=== PATIENT | female | born 1955 | race Caucasian/White ===

== ENCOUNTER 2018-09-12 15:10 | Inpatient (IN) | payer MEDICARE, OTHER ==
[2014-06-22 11:46] VITALS: Ht 157.5 cm; Wt 89.4 kg
[~2018-09-12] VITALS: Ht 157.5 cm; Wt 89.4 kg
[~2018-09-12 15:10] MED LIST: ALP5 PO; AMOX-362 PO; ATEN-1 PO; Aspirin PO; CALC-965 PO; FURO20TA2 PO; GLIP-175 PO; GUAI-334 PO; HYDR2TAB74 PO; INSU100V26 IJ; LANI SUBQ; LANS15CA28 PO; LEVO50 PO; MET500 PO; MOME17SP9 NS; NOR10/325 PO; OMEP-114 PO; OXYC-865 PO; PRED1TAB17 PO; SER50 PO; SITA50TA6 PO; TIZ4 PO; TOFA5TAB PO; [UNRECOGNIZED DRUG - CODE] PO
--- NOTE | 2018-09-12 15:18 | ER Report ---
History and Physical Time Seen By MD: 15:18 HPI/ROS CHIEF COMPLAINT: Left-sided weakness, facial droop HISTORY OF PRESENT ILLNESS: 63-year-old female patient presents to emergency room with complaint of left-sided weakness, facial droop. Patient states that she was in [place] visiting her family. She states that her sister came to pick her up and bring her back to [place]. She states when they did that they noted that she had a left-sided facial droop. They said go to the emergency room and evaluated there. They state that while there they did a CT scan of the head and told them that everything was okay discharge her home. She states since then she's been having worsening symptoms. She states she has had some chest pain. She states she also has had increasing weakness in the left part of her body. Patient states she did have a seizure earlier today. As for that reason they felt that patient bring her in and get her evaluated. Patient denies any fevers, chills, nausea, vomiting or diarrhea. REVIEW OF SYSTEMS: Respiratory: No cough, no dyspnea. Cardiovascular: No chest pain, no palpitations. Gastrointestinal: No vomiting, no abdominal pain. Musculoskeletal: As noted above. Allergies: Coded Allergies: morphine (Verified Adverse Reaction, Severe, RESPIRATORY ARREST, CHEST PAIN, 09/12/18) Home Meds Reported Medications Hydrocodone Bit/Acetaminophen (HYDROCODON-ACETAMINOPHEN 5-325) 1 Each Tablet, 1 EACH PO Q6H, TAB 09/12/18 Losartan Potassium (LOSARTAN POTASSIUM) 50 Mg Tablet, 50 MG PO QDAY 09/12/18 Insulin Regular, Human (HUMULIN R) 100 Unit/1 Ml Vial, 5 UNIT IJ, VIAL 12/08/14 Tofacitinib Citrate (XELJANZ) 5 Mg Tablet, 5 MG PO BID 12/08/14 Discontinued Reported Medications Glipizide (GLIPIZIDE ER) 5 Mg Tab.er.24, PO BID 12/08/14 Tizanidine Hcl (Zanaflex) 4 Mg Tab, 8 MG PO PRN 01/04/12 Furosemide (LASIX (OR EQUIV)) 20 Mg Tab, 20 MG PO DAILY 01/04/12 Alprazolam (Xanax) 0.5 Mg Tab, 0.5 MG PO TID 01/04/12 Prednisone (PREDNISONE) 1 Mg Tablet, 5 MG PO DAILY 01/04/12 Acetaminophen/Hydrocodone ([place] 10/325) 1 Ea Tab, 1 EA PO PRN 01/04/12 Levothyroxine Sodium (SYNTHROID/LEVOTHROID (OR EQUIV)) 0.05 Mg Tab, 150 MCG PO DAILY 01/04/12 Discontinued Scripts Hydromorphone Hcl (DILAUDID) 2 Mg Tablet, 2 MG PO Q4H PRN for PAIN, #10 Prov:SENACAMILO Kurt DO 03/07/15 Omeprazole (PRILOSEC) 20 Mg Capsule.dr, 1 TAB PO BID, #60 TAB Prov:CRISTINA JONES DO 02/21/15 Amoxicillin (AMOXICILLIN) 500 Mg Capsule, 2 CAP PO Q12H, #56 CAPSULE Prov:CRISTINA JONES DO 02/21/15 Clarithromycin (CLARITHROMYCIN) 250 Mg/5 Ml Susp.recon, 500 MG PO BID, #28 BOT Prov:CRISTINA JONES DO 02/21/15 Lansoprazole (PREVACID 24HR) 15 Mg Capsule.dr, 15 MG PO QDAY, #0 Prov:MARIA G HERNANDEZ MD 06/22/14 [Aspirin] 81 MG CHEW No Conflict Check, 81 MG PO QDAY, #0 Prov:MARIA G HERNANDEZ MD 06/22/14 Past Medical/Surgical History Patient has a past medical history of a right bundle branch block, angina, hypertension, hyperlipidemia, asthma, pneumonia, fatty liver disease, arthritis, fractures, type 2 diabetes, hypothyroidism, depression. Patient has surgical history of hysterectomy, appendectomy, right knee surgery, low back surgery, right shoulder surgery, tonsillectomy. Patient has a family medical history of cancer. Reviewed Nurses Notes: Yes Hx Smoking: No Smoking Status: Never Smoker Exposure to Second Hand Smoke?: No Hx Substance Use Disorder: No Hx Alcohol Use: No Constitutional Vital Sign - Last 24 Hours 09/12/18 09/12/18 09/12/18 09/12/18 15:30 15:36 15:40 16:00 Temp 98.7 Pulse ??? 101 ??? Resp 18 17 B/P (MAP) 129/81 (97) 129/81 141/77 (98) Pulse Ox 89 88 O2 Delivery Room Air 09/12/18 09/12/18 09/12/18 09/12/18 16:30 17:46 18:00 18:30 Pulse 95 96 102 Resp 24 24 29 B/P (MAP) 136/94 (108) 105/83 (90) 142/124 (130) 09/12/18 09/12/18 09/12/18 19:00 19:15 19:30 Pulse 96 94 96 Resp 26 25 42 B/P (MAP) 117/79 (92) 124/90 (101) Pulse Ox 91 92 Physical Exam General Appearance: The patient is alert, has no immediate need for airway protection and no current signs of toxicity. He has a left-sided facial droop. Eyes: Pupils equal and round no injection. Extraocular movements intact. Patient was complaining of decreased vision in the left side. Respiratory: Chest is non tender, lungs are clear to auscultation. Cardiac: regular rate and rhythm Gastrointestinal: Abdomen is soft and non tender, no masses, bowel sounds normal. Musculoskeletal: Neck: Neck is supple and non tender. Extremities have full range of motion and are non tender. Patient has obvious weakness to the left side of the body. She was unable to complete pronator drift. Skin: No rashes or lesions. Neuro: Patient is alert and oriented 4, patient does have a left-sided facial droop. Patient has weakness to the left arm. Pronator drift patient was not able to keep her left arm elevated. DIFFERENTIAL DIAGNOSIS: After history and physical exam differential diagnosis was considered for weakness including but not limited to electrolyte abnormality, depression, anxiety, CVA, spinal cord abnormality, and infectious causes. Medical Decision Making Data Points Result Diagram: 09/12/18 1556 09/12/18 1556 Laboratory Hematology Test 09/12/18 15:56 Red Blood Count 4.87 M/uL (4.17-5.56) Mean Corpuscular Volume 83.5 fL (80.0-96.0) Mean Corpuscular Hemoglobin 28.1 pg (26.0-33.0) Mean Corpuscular Hemoglobin Concent 33.6 g/dL (32.0-36.0) Red Cell Distribution Width 14.4 % (11.5-14.5) Mean Platelet Volume 9.2 fL (7.2-11.1) Neutrophils (%) (Auto) 66.8 % (39.4-72.5) Lymphocytes (%) (Auto) 24.6 % (17.6-49.6) Monocytes (%) (Auto) 7.2 % (4.1-12.4) Eosinophils (%) (Auto) 0.6 % (0.4-6.7) Basophils (%) (Auto) 0.8 % (0.3-1.4) Nucleated RBC Relative Count (auto) 0.1 /100WBC Neutrophils # (Auto) 7.3 K/uL (2.0-7.4) Lymphocytes # (Auto) 2.7 K/uL (1.3-3.6) Monocytes # (Auto) 0.8 K/uL (0.3-1.0) Eosinophils # (Auto) 0.1 K/uL (0.0-0.5) Basophils # (Auto) 0.1 K/uL (0.0-0.1) Nucleated RBC Absolute Count (auto) 0.01 K/uL Prothrombin Time 13.4 seconds (12.0-14.4) Prothromb Time International Ratio 1.02 Activated Partial Thromboplast Time 28 seconds (23-35) Sodium Level 129 mmol/L (137-145) Potassium Level 3.1 mmol/L (3.5-5.0) Chloride Level 93 mmol/L (98-107) Carbon Dioxide Level 23 mmol/L (22-31) Blood Urea Nitrogen 19 mg/dl (7-18) Creatinine 0.70 mg/dl (0.52-1.04) Glomerular Filtration Rate Calc > 60.0 Random Glucose 350 mg/dl (75-110) Calcium Level 9.4 mg/dl (8.4-10.2) Total Bilirubin 0.4 mg/dl (0.2-1.3) Aspartate Amino Transf (AST/SGOT) 18 U/L (0-35) Alanine Aminotransferase (ALT/SGPT) 18 U/L (0-56) Alkaline Phosphatase 80 U/L (0-126) Troponin I < 0.012 ng/ml Total Protein 7.6 g/dl (6.3-8.2) Albumin 4.1 g/dl (3.5-5.0) Chemistry Test 09/12/18 15:56 White Blood Count 10.9 k/uL (4.5-11.0) Red Blood Count 4.87 M/uL (4.17-5.56) Hemoglobin 13.7 g/dL (12.0-16.0) Hematocrit 40.6 % (34.0-47.0) Mean Corpuscular Volume 83.5 fL (80.0-96.0) Mean Corpuscular Hemoglobin 28.1 pg (26.0-33.0) Mean Corpuscular Hemoglobin Concent 33.6 g/dL (32.0-36.0) Red Cell Distribution Width 14.4 % (11.5-14.5) Platelet Count 339 K/uL (150-450) Mean Platelet Volume 9.2 fL (7.2-11.1) Neutrophils (%) (Auto) 66.8 % (39.4-72.5) Lymphocytes (%) (Auto) 24.6 % (17.6-49.6) Monocytes (%) (Auto) 7.2 % (4.1-12.4) Eosinophils (%) (Auto) 0.6 % (0.4-6.7) Basophils (%) (Auto) 0.8 % (0.3-1.4) Nucleated RBC Relative Count (auto) 0.1 /100WBC Neutrophils # (Auto) 7.3 K/uL (2.0-7.4) Lymphocytes # (Auto) 2.7 K/uL (1.3-3.6) Monocytes # (Auto) 0.8 K/uL (0.3-1.0) Eosinophils # (Auto) 0.1 K/uL (0.0-0.5) Basophils # (Auto) 0.1 K/uL (0.0-0.1) Nucleated RBC Absolute Count (auto) 0.01 K/uL Prothrombin Time 13.4 seconds (12.0-14.4) Prothromb Time International Ratio 1.02 Activated Partial Thromboplast Time 28 seconds (23-35) Glomerular Filtration Rate Calc > 60.0 Calcium Level 9.4 mg/dl (8.4-10.2) Total Bilirubin 0.4 mg/dl (0.2-1.3) Aspartate Amino Transf (AST/SGOT) 18 U/L (0-35) Alanine Aminotransferase (ALT/SGPT) 18 U/L (0-56) Alkaline Phosphatase 80 U/L (0-126) Troponin I < 0.012 ng/ml Total Protein 7.6 g/dl (6.3-8.2) Albumin 4.1 g/dl (3.5-5.0) Coagulation Test 09/12/18 15:56 Prothrombin Time 13.4 seconds Prothromb Time International Ratio 1.02 Activated Partial Thromboplast Time 28 seconds EKG/Imaging EKG Interpretation 12 lead EKG: Rhythm: normal sinus rhythm Dalton: normal QRS: normal ST segments: Nonspecific ST abnormality Imaging MR BRAIN/BRAIN STEM W/O CON Comparisons: Head CT scan dated same day. Additional pertinent history: Left-sided weakness TECHNIQUE: Multiplanar, multisequence brain MRI was performed without gadolinium contrast. FINDINGS: Sagittal midline structures and craniocervical junction: Negative. Midline shift: None. Ventricles: Negative. Brain parenchyma: Diffusion weighted imaging: Negative. Gradient sequence: Negative. T2 weighted FLAIR images: Scattered foci of abnormal increased T2 signal within the periventricular and subcortical white matter, nonspecific but likely representing small vessel ischemic change on a chronic basis. Extra-axial spaces: Negative. Dural venous sinuses and major arterial flow voids: Negative. Mastoid air cells and paranasal sinuses: Large mucous retention cyst involving the left maxillary sinus. Otherwise negative Surrounding soft tissues and orbits: Negative. Impression: E 1. Mild age related changes as described above. 2. No evidence of acute intracranial pathology. 3. Underlying paranasal sinus disease. Report Dictated By: Alonso Borjas MD at 09/12/2018 5:54 PM Report E-Signed By: Alonso Borjas MD at 09/12/2018 5:58 PM CHEST SINGLE AP INDICATION: chest pain, facial droop COMPARISON: 12/09/2014 FINDINGS: Cardiac silhouette is mildly enlarged. There is no focal infiltrate or lobar consolidation. There is no pneumothorax or pleural effusion. IMPRESSION: 1. No acute cardiopulmonary process. Report Dictated By: Srinivas Johnson at 09/12/2018 5:21 PM Report E-Signed By: Srinivas Johnson at 09/12/2018 5:[address] head without IV contrast HISTORY: Stroke alert. Left-sided weakness. COMPARISON: None. TECHNIQUE: Contiguous axial images were obtained from the skull base to the vertex without intravenous contrast. Sagittal and coronal reformatted images are also submitted. One of the following dose optimization techniques was utilized in the performance of this exam: Automated exposure control; adjustment of the mA and/or kV according to the patient's size; or use of an iterative bridgette nstruction technique. Specific details can be referenced in the facility's radiology CT exam operational policy. FINDINGS: Brain volume: Mild generalized atrophy with associated concordant prominence of the ventricular system. Ventricles: Normal. Acute ischemic changes: There is no loss of lui-white differentiation to suggest acute ischemia. Hemorrhage: No acute intracranial hemorrhage. Masses/edema: None. Lui-white: There are a few small areas of hypodensity in the left frontal perisylvian region. White matter: Normal. Vessels: Calcified plaque of the vertebral arteries and carotid siphons at the skull base. Extra-axial: Negative. Calvarium/scalp: Negative. Skull base/visualized face: Negative. Visualized sinuses/orbits: 2 cm mucous retention cyst in the left maxillary sinus. IMPRESSION: 1. No acute hemorrhage or intracranial mass lesion. No CT evidence of acute infarct. 2. A few small areas of hypodensity in the left frontal lobe could be related to old infarcts or trauma. These findings were discussed with HERSON CAIN at 09/12/2018 3:45 PM. Report Dictated By: Jerilyn Smith MD at 09/12/2018 3:42 PM Report E-Signed By: Jerilyn Smith MD at 09/12/2018 3:47 PM ED Course/Re-evaluation ED Course Patient was admitted to an exam room, history and physical were obtained. Differential diagnoses were considered. On examination patient did have left- sided weakness with a left-sided facial droop. During the pronator drift patient was not able to keep her left arm elevated. As result a CT scan of the head was done, a CBC, CMP, PT, PTT, EKG, troponin, chest x-ray were done. Lab results were unremarkable, EKG showed a normal sinus rhythm, chest x-ray showed no acute cardiopulmonary processes. With the facial weakness and the inability Left arm elevated I did discuss doing an MRI with patient. She verbalized understanding and agreement. Results of the MRI were negative for any acute stroke. At that time I discussed the case with Dr. Mishra, neurologist at [facility], he felt that the differentials included psychogenic weakness, MRA negative stroke. His recommendation was to go ahead and admit the patient to the hospital, monitor for 24 hours and continue the workup for stroke. If that was negative then patient should follow-up with neurology in the future. I discussed with patient who verbalized agreement. I then spoke with Dr. Price, hospitalist, who agreed to accept the patient for admission. Decision to Disposition Date: Sep 12, 2018 Decision to Disposition Time: 19:08 Depart Departure Latest Vital Signs Vital Signs Date Time Temp Pulse Resp B/P (MAP) Pulse Ox O2 Delivery O2 Flow Rate FiO2 09/12/18 19:30 96 42 124/90 (101) 92 09/12/18 15:40 98.7 Room Air Impression: Primary Impression: Left-sided weakness Condition: Condition Unchanged Disposition: Admitted from ER Referrals: RON ZUÑIGA DO (PCP) HERSON CAIN Sep 12, 2018 15:18
--- NOTE | 2018-09-12 15:52 | RADIOLOGY IMAGING REPORT ---
FACILITY: [facility] PATIENT NAME: Savannah Franco : 1955 MR: [id number] V: [id number] EXAM DATE: ORDERING PHYSICIAN: HERSON CAIN TECHNOLOGIST: Location: [facility] Patient: Savannah Franco : 1955 Visit/Account:[id number] Date of Sevice: 09/12/2018 EXAMINATION: CT head without IV contrast HISTORY: Stroke alert. Left-sided weakness. COMPARISON: None. TECHNIQUE: Contiguous axial images were obtained from the skull base to the vertex without intraven ous contrast. Sagittal and coronal reformatted images are also submitted. One of the following dose optimization techniques was utilized in the performance of this exam: Autom ated exposure control; adjustment of the mA and/or kV according to the patient's size; or use of an i terative reconstruction technique. Specific details can be referenced in the facility's radiology C T exam operational policy. FINDINGS: Brain volume: Mild generalized atrophy with associated concordant prominence of the ventricular syst em. Ventricles: Normal. Acute ischemic changes: There is no loss of lui-white differentiation to suggest acute ischemia. Hemorrhage: No acute intracranial hemorrhage. Masses/edema: None. Lui-white: There are a few small areas of hypodensity in the left frontal perisylvian region. White matter: Normal. Vessels: Calcified plaque of the vertebral arteries and carotid siphons at the skull base. Extra-axial: Negative. Calvarium/scalp: Negative. Skull base/visualized face: Negative. Visualized sinuses/orbits: 2 cm mucous retention cyst in the left maxillary sinus. IMPRESSION: 1. No acute hemorrhage or intracranial mass lesion. No CT evidence of acute infarct. 2. A few small areas of hypodensity in the left frontal lobe could be related to old infarcts or trau ma. These findings were discussed with HERSON CAIN at 09/12/2018 3:45 PM. Report Dictated By: Jerilyn Smith MD at 09/12/2018 3:42 PM Report E-Signed By: Jerilyn Smith MD at 09/12/2018 3:47 PM WSN:[id number]
[2018-09-12 16:10] LABS: PLATELET COUNT, AUTOMATED 339 K/uL (150-450)
--- NOTE | 2018-09-12 16:13 | EKG ---
FACILITY: [facility] [place] PATIENT NAME: NEREIDA FORD : [id number] MR: [id number] V: [id number] EXAM DATE: ORDERING PHYSICIAN: HERSON CAIN TECHNOLOGIST: Test Reason : Blood Pressure : / mmHG Vent. Rate : 100 BPM Atrial Rate : 100 BPM P-R Int : 158 ms QRS Dur : 092 ms QT Int : 378 ms P-R-T Axes : 054 008 078 degrees QTc Int : 487 ms Sinus rhythm Non specific st changes Prolonged QT Abnormal ECG No previous ECGs available Confirmed by Bhaskar Segura ([id number]) on 09/12/2018 10:10:26 PM Referred By: Confirmed By:Bhaskar Torres
[2018-09-12 16:26] LABS: INR 1.02
[2018-09-12] MEDS ORDERED: LOSA50TA80 PO (16:52)
--- NOTE | 2018-09-12 17:26 | RADIOLOGY IMAGING REPORT ---
FACILITY: [facility] [place]IENT NAME: Savannah Franco : 1955 MR: [id number] V: [id number] EXAM DATE: ORDERING PHYSICIAN: HERSON CAIN TECHNOLOGIST: Location: [facility] [place] Patient: Savannah Franco : 1955 Visit/Account:[id number] Date of Sevice: 09/12/2018 CHEST SINGLE AP INDICATION: chest pain, facial droop COMPARISON: 12/09/2014 FINDINGS: Cardiac silhouette is mildly enlarged. There is no focal infiltrate or lobar consolidation. There is no pneumothorax or pleural effusion. IMPRESSION: 1. No acute cardiopulmonary process. Report Dictated By: Srinivas Johnson at 09/12/2018 5:21 PM Report E-Signed By: Srinivas Johnson at 09/12/2018 5:22 PM WSN:[id number]
--- NOTE | 2018-09-12 18:04 | RADIOLOGY IMAGING REPORT ---
FACILITY: [facility] PATIENT NAME: Savannah Franco : 1955 MR: [id number] V: [id number] EXAM DATE: ORDERING PHYSICIAN: HERSON CAIN TECHNOLOGIST: Location: [facility] Patient: Savannah Franco : 1955 Visit/Account:[id number] Date of Sevice: 09/12/2018 MR BRAIN/BRAIN STEM W/O CON Comparisons: Head CT scan dated same day. Additional pertinent history: Left-sided weakness TECHNIQUE: Multiplanar, multisequence brain MRI was performed without gadolinium contrast. FINDINGS: Sagittal midline structures and craniocervical junction: Negative. Midline shift: None. Ventricles: Negative. Brain parenchyma: Diffusion weighted imaging: Negative. Gradient sequence: Negative. T2 weighted FLAIR images: Scattered foci of abnormal increased T2 signal within the periventricular and subcortical white matter, nonspecific but likely representing small vessel ischemic change on a chronic basis. Extra-axial spaces: Negative. Dural venous sinuses and major arterial flow voids: Negative. Mastoid air cells and paranasal sinuses: Large mucous retention cyst involving the left maxillary sin us. Otherwise negative Surrounding soft tissues and orbits: Negative. Impression: E 1. Mild age related changes as described above. 2. No evidence of acute intracranial pathology. 3. Underlying paranasal sinus disease. Report Dictated By: Alonso Borjas MD at 09/12/2018 5:54 PM Report E-Signed By: Alonso Borjas MD at 09/12/2018 5:58 PM WSN:[id number]
[2018-09-12] MEDS ORDERED: KETOROLAC 15 MG/ML VIAL IVP ONE (19:00)
[2018-09-12 20:00] VITALS: BP 126/78
[2018-09-12] MEDS ORDERED: FLUSH 10 ML SYR IVP PRN (20:05)
[2018-09-12] MEDS ORDERED: HYDR-385 PO (20:42)
[2018-09-12] MEDS ORDERED: INSULIN HUM LISPRO 100 UN/ML 3 ML VIAL SUBQ PRN (21:55)
--- NOTE | 2018-09-12 21:59 | History & Physical ---
History of Present Illness Chief Complaint L side weakness History of Present Illness 63F presented with complaint of L sided weakness. PMHx significant for RA, DM. Family noted facial droop and L sided weakness tuesday. Reportedly had negative CT in [place] and was released. Continued to have L sided weakness and would bump onto jeong on L side. Had what family call seizure today and was brought in for evaluation. Neurology consulted out of ER and they recommend admission with TIA/stoke work up. MRI negative for acute pathology. Physical exam is not reproducible and deficit seems to vary. Profound L arm and leg weakness reported yet while sleeping L leg was moving with no issue. 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 History Problems: (1) RA (rheumatoid arthritis) Status: Chronic (2) Hypothyroid Status: Chronic (3) Type 2 diabetes mellitus Status: Chronic Home Meds Reported Medications Hydrocodone Bit/Acetaminophen (HYDROCODON-ACETAMINOPHEN 5-325) 1 Each Tablet, 1 EACH PO Q6H, TAB 09/12/18 Losartan Potassium (LOSARTAN POTASSIUM) 50 Mg Tablet, 50 MG PO QDAY 09/12/18 Insulin Regular, Human (HUMULIN R) 100 Unit/1 Ml Vial, 5 UNIT IJ, VIAL 12/08/14 Tofacitinib Citrate (XELJANZ) 5 Mg Tablet, 5 MG PO BID 12/08/14 Discontinued Reported Medications Glipizide (GLIPIZIDE ER) 5 Mg Tab.er.24, PO BID 12/08/14 Tizanidine Hcl (Zanaflex) 4 Mg Tab, 8 MG PO PRN 01/04/12 Furosemide (LASIX (OR EQUIV)) 20 Mg Tab, 20 MG PO DAILY 01/04/12 Alprazolam (Xanax) 0.5 Mg Tab, 0.5 MG PO TID 01/04/12 Prednisone (PREDNISONE) 1 Mg Tablet, 5 MG PO DAILY 01/04/12 Acetaminophen/Hydrocodone ([place] 10/325) 1 Ea Tab, 1 EA PO PRN 01/04/12 Levothyroxine Sodium (SYNTHROID/LEVOTHROID (OR EQUIV)) 0.05 Mg Tab, 150 MCG PO DAILY 01/04/12 Discontinued Scripts Hydromorphone Hcl (DILAUDID) 2 Mg Tablet, 2 MG PO Q4H PRN for PAIN, #10 Prov:CAMILO SHETTY DO 03/07/15 Omeprazole (PRILOSEC) 20 Mg Capsule.dr, 1 TAB PO BID, #60 TAB Prov:CRISTINA JONES DO 02/21/15 Amoxicillin (AMOXICILLIN) 500 Mg Capsule, 2 CAP PO Q12H, #56 CAPSULE Prov:CRISTINA JONES DO 02/21/15 Clarithromycin (CLARITHROMYCIN) 250 Mg/5 Ml Susp.recon, 500 MG PO BID, #28 BOT Prov:CRISTINA JONES DO 02/21/15 Lansoprazole (PREVACID 24HR) 15 Mg Capsule.dr, 15 MG PO QDAY, #0 Prov:MARIA G HERNANDEZ MD 06/22/14 [Aspirin] 81 MG CHEW No Conflict Check, 81 MG PO QDAY, #0 Prov:MARIA G HERNANDEZ MD 06/22/14 Allergies: Coded Allergies: morphine (Verified Adverse Reaction, Severe, RESPIRATORY ARREST, CHEST PAIN, 09/12/18) Patient History: FH: heart disease FATHER BROTHER OR SISTER BROTHER OR SISTER FH: lung cancer MOTHER FH: stroke BROTHER OR SISTER Hx Smoking: No Smoking Status: Never Smoker Exposure to Second Hand Smoke?: Yes Caffeine Intake: Coffee, Soda Caffeine/Cups Per Day: 1 cup coffee, occasional soda Hx Alcohol Use: Yes Alcohol Used: Liquor When Quit Alcohol?: 15 years ago Hx Substance Use Disorder: No Social Drug Use: Never Exam Vital Signs Vital Signs Date Time Temp Pulse Resp B/P (MAP) Pulse Ox O2 Delivery O2 Flow Rate FiO2 09/12/18 20:05 92 09/12/18 20:05 Room Air 09/12/18 20:00 100.7 100 18 126/78 (94) General Appearance: Awake, No Acute Distress, Afebrile Neuro: No Gross deficits (cn 2-12 intact, neuro exam is not reproducible) Eyes: PERRLA ENT: Normal Cardiovascular: Normal Rhythm & Peripheral Pulses Respiratory: No Respiratory Distress GI: Abd Soft and Non-Tender Musculoskeletal: Other (4/5 muscle strenghth L hand, used to move self in bed with no issues) Extremities: Soft and Non Tender, Warm, Pulses, Perfused Medical Decision Making Data Points Result Diagram: 09/12/18 3616 09/12/18 8526 Assessment and Plan Problems: (1) Left-sided weakness Status: Acute Assessment & Plan: Appears to be resolving and inconsistent on examination. Given reported seizure and report of focal deficit will get echo with bubble, carotid Doppler, EEG, monitor on tele, lipid panel. MRI negative for acute pathology. Will also get am cortisol and TSH. Consult PT/OT/ST. Started on 325 ASA. (2) Type 2 diabetes mellitus Status: Chronic Assessment & Plan: On Humulin holding, will cover with SSI # 2 while inpatient. (3) Hypothyroid Status: Chronic Assessment & Plan: Per record review, no medications at home. TSH pending. (4) RA (rheumatoid arthritis) Status: Chronic Assessment & Plan: Holding chronic Xeljanz. Venous Thromboembolism Antithrombotics Is Pt On Any Antithrombotics?: Yes Exam Sepsis Risk: No Definite Risk SHARIF PRATIMA THOMASON DO Sep 12, 2018 21:58
[2018-09-13] VITALS (7 sets, daily range): BP systolic 87–117; BP diastolic 45–77
[2018-09-13] MEDS ORDERED: levETIRAcetam(*)500 MG/5 ML VI 500 MG in NS(*) 0.9% 100 ML BAG 100 ML IVPB ONE (02:15)
[2018-09-13] MEDS ORDERED: LORazepam 2 MG/ML VIAL IVP PRN ×2 (02:20→02:30)
[2018-09-13] MEDS ORDERED: LORazepam 2 MG/ML VIAL ONE (02:25)
[2018-09-13] MEDS ORDERED: LORazepam 2 MG/ML VIAL IVP ONE (02:25)
[2018-09-13] MEDS ORDERED: NS(*) 0.9% 250 ML BAG 250 ML ONE (02:40)
--- NOTE | 2018-09-13 02:41 | Miscellaneous Provider Note ---
Miscellaneous Provider Note Note Pt had witnessed tonic/clonic seizure with postictal period. Keppra ordered and while waiting for medicine without a lucid period patient had second tonic/clonic seizure. 2mg IV Ativan were given. Patient became hypoxic during seizure and supplemental O2 by mask was started. PRN Ativan ordered as well as 500mg Keppra IV loading dose and BID. PRATIMA PATTON DO Sep 13, 2018 02:41
[2018-09-13 06:18] LABS: LDL CHOLESTEROL 116 mg/dl
[2018-09-13] MEDS ORDERED: NS(*) 0.9% 1000 ML BAG 1,000 ML IV PRN (08:20)
--- NOTE | 2018-09-13 08:50 | Hospitalist Progress Note ---
Subjective Progress Notes Subjective This patient was admitted for concerns of a stroke, but then had two seizures overnight. Patient Complains of: Cardiovascular: No: Chest Pain Respiratory: No: Shortness of Breath Physical Exam Vital Signs Date Time Temp Pulse Resp B/P (MAP) Pulse Ox O2 Delivery O2 Flow Rate FiO2 09/13/18 03:59 101 09/13/18 01:26 98.5 18 117/77 (90) 95 Room Air Intake and Output 09/13/18 07:00 Intake Total 30 ml Balance 30 ml Intake IV Total 30 ml # Voids 1 Neuro: No Gross deficits Cardiovascular: Regular Rate and Rhythm Respiratory: Clear to Auscultation Result Diagram: 09/12/18 1556 09/13/18 0537 Assessment and Plan Problems: (1) Seizure Assessment & Plan: She did have 2 witnessed seizures overnight. She was treated with lorazepam and Keppra. An EEG is pending. (2) Left-sided weakness Status: Acute Assessment & Plan: An MRI of the brain was negative. An echocardiogram and carotid ultrasound are pending. (3) Type 2 diabetes mellitus Status: Chronic Assessment & Plan: She is on sliding scale level #2, but her sugars were > 400 today. We have increased her to level #3. (4) Hypothyroid Status: Chronic Assessment & Plan: A TSH is pending. She is not on any treatment. (5) RA (rheumatoid arthritis) Status: Chronic Assessment & Plan: Holding chronic Xeljanz. Exam Sepsis Risk: No Definite Risk RISA CODY DO Sep 13, 2018 08:50
[2018-09-13] MEDS ORDERED: levETIRAcetam(*)500 MG/5 ML VI 500 MG in NS(*) 0.9% 100 ML BAG 100 ML IVPB SCH (09:00)
[2018-09-13] MEDS ORDERED: ASPIRIN 325 MG TAB PO SCH (09:00)
[2018-09-13] MEDS: ENOXAPARIN 40 MG/0.4ML SYR SC SCH (09:08)
[2018-09-13] MEDS: INSULIN HUM LISPRO 100 UN/ML 3 ML VIAL SUBQ PRN ×3 (09:16→21:15)
[2018-09-13] MEDS ORDERED: levETIRAcetam(*)500 MG/5 ML VI 500 MG in NS(*) 0.9% 100 ML BAG 100 ML IV SCH (11:00)
--- NOTE | 2018-09-13 11:46 | NUR ---
Physical Therapy Impression Spoke with Pt's nurse re: PT eval. Per Pt's nurse, she had a seizure approximately 30 minutes ago and additional medical testing has not yet been performed. PT to hold eval until tomorrow/when medically appropriate. Physical Therapy Goals Patient's Goals
[2018-09-13] MEDS ORDERED: D5NS(*) 1000 ML BAG 1,000 ML IV PRN (13:05)
[2018-09-13] MEDS ORDERED: KETOROLAC 15 MG/ML VIAL IVP ONE (13:15)
--- NOTE | 2018-09-13 13:41 | NUR ---
ST Encounter ST orders received. Per chart review and discussion with rehab team, PT/OT/ST to hold evals until the pt is medically appropriate. Pt continues w/ repeated seizures, medical workup pending. ST to f/u on 09/14.
[2018-09-13] MEDS: HYDROCORTISONE 100 MG/2 ML IVP SCH ×2 (14:18→23:10)
--- NOTE | 2018-09-13 14:20 | Medical Nutrition Therapy ---
Nutrition Anthropometrics Height (Inches): 62.00 Height (Calculated Centimeters: 157.472903 Weight (Pounds): 197 Weight (Calculated Kilograms): 89.358 BMI: 36 Timo Nutrition Score: Adequate Timo Nutrition Risk Score: 19 Dietary Referral Nutrition Risk Factors: Nutrition Risk Comment: Physical Findings Physical Appearance: Obese BMI 30-39 Skin Appearance Skin Appearance: Edema Edema Location Modifier: Edema Location: Type of Edema: Degree of Edema: Gastrointestinal Symptoms GI Symtoms: Nausea Tube Present: Bowel Sounds: Recent Bowel Pattern: Stool Characteristics: Nutritional Diagnosis Nutritional Risk Acuity 2: Blood Glucose > 300mg/dl Past Medical History: hypothyroid, hypertryglyceride, hypercholesterol, RA, T2DM Nutritional Acuity: 2-Moderate Nutrition Diagnosis: Inappropriate Carb Intake Nutrition Etiology: Physiological Causes Nutrition Problem/Etiology/Sym: AEB RBG ranging 344- 402. Adjusted Energy Requirement Re: 1580 (IJ adj for obesity) Protein Requirement: 61 (1gm/kg IBW) Fluid Requirement: 2250 (1ml/kg) Diet Type: Diabetic Nutrition Intervention: Cont diet as ordered, Encourage intake Nutrition Monitoring & Eval Nutrition Goals: Eat 75-100% Meal RD Patient Assessment Time: [address] Assessment Type: RD Assessment Patient Nutrition Acuity: 2-Moderate Follow Up Date: Sep 18, 2018 Nutritional Comment: 09/13 Pt admitted with Lt side weaknes and seizures. Pt has hx of RA and T2DM. Pt on insulin. BG elevated ranging 344-402. alb 4.1, K+ low at 3.4, chol 212. Pt on diabetic diet but no intake reported at this time. Will offer diabetic diet educaion when pt appropriate for education. Will cont to monitor and encourage intake. WOLFGANG HUDSON Sep 13, 2018 13:07
--- NOTE | 2018-09-13 19:16 | Miscellaneous Provider Note ---
Miscellaneous Provider Note Note She has had one seizure earlier this morning that was observed by nursing staff. The family reports additional seizure activity, but vital signs remained unchanged during those episodes. She has had several doses of Keppra since the initial seizure last night. We will convert her to fosphenytoin. RISA CODY DO Sep 13, 2018 19:16
[2018-09-13] MEDS ORDERED: FOSPHENYTOIN IVPB ONE ×2 (19:45)
[2018-09-13] MEDS ORDERED: [UNRECOGNIZED DRUG - OTHER] IVPB ONE (19:45)
[2018-09-13] MEDS ORDERED: NS 0.9% IVPB ONE ×2 (19:45)
[2018-09-13] MEDS ORDERED: [UNRECOGNIZED DRUG - OTHER] IVPB ONE (19:45)
[2018-09-13] MEDS: D5NS(*) 1000 ML BAG 1,000 ML IV PRN (23:49)
[2018-09-14 00:17] VITALS: BP 112/67
[2018-09-14] MEDS: INSULIN HUM LISPRO 100 UN/ML 3 ML VIAL SUBQ PRN ×5 (00:25→20:10)
[2018-09-14 03:58] VITALS: BP 130/77
[2018-09-14] MEDS: HYDROCORTISONE 100 MG/2 ML IVP SCH ×2 (05:22→17:19)
[2018-09-14] MEDS: NS 0.9% IVPB SCH ×2 (08:17→19:17)
[2018-09-14] MEDS: D5NS(*) 1000 ML BAG 1,000 ML IV PRN (08:17)
[2018-09-14] MEDS: FOSPHENYTOIN IVPB SCH ×2 (08:17→19:17)
[2018-09-14] MEDS: [UNRECOGNIZED DRUG - OTHER] IVPB SCH ×2 (08:17→19:17)
[2018-09-14 08:32] VITALS: BP 128/97
[2018-09-14] MEDS: NS(*) 0.9% 1000 ML BAG 1,000 ML IV PRN ×2 (09:17→21:12)
[2018-09-14] MEDS: ENOXAPARIN 40 MG/0.4ML SYR SC SCH (09:21)
--- NOTE | 2018-09-14 09:25 | Hospitalist Progress Note ---
Subjective Progress Notes Subjective She is awake and alert. She reports irritation with Jaffe catheter and states she feels "weak all over". No LEVIN. No CP/SOB/nausea. No further seizure activity. Physical Exam Vital Signs Date Time Temp Pulse Resp B/P (MAP) Pulse Ox O2 Delivery O2 Flow Rate FiO2 09/14/18 08:32 98.7 76 18 128/97 (107) 96 Oxy Mask 2.0 Intake and Output 09/14/18 07:00 Output Total 1100 ml Balance -1100 ml Output Urine Total 1100 ml General Appearance: Alert, Awake Neuro: Other (No focal motor deficits) Eyes: PERRLA ENT: Oropharynx Clear Cardiovascular: Regular Rate and Rhythm Respiratory: Clear to Auscultation GI: Soft and Non-Tender Extremities: Warm, Perfused Psych: Other (she is oriented to person/place/partially to time) Result Diagram: 09/12/18 1556 09/13/18 0537 Assessment and Plan Problems: (1) Seizure Assessment & Plan: She did have 2 witnessed seizures. She was initially treated with lorazepam and Keppra, but has now been transitioned to Dilantin. She has not had any further seizures. EEG is pending. MRI unremarkable. Labs rather unremarkable. No real significant history of head injury or previous seizure (none as a child as well). (2) Left-sided weakness Status: Acute Assessment & Plan: Appears to have improved/resolved. MRI of the brain was negative. An echocardiogram and carotid ultrasound are pending. Possibly related to seizure. Will start to mobilize with PT/OT. (3) Type 2 diabetes mellitus Status: Chronic Assessment & Plan: Exacerbated by stress dose steroids. She is on sliding scale insulin. Continue ADA diet. Watch closely. (4) Hypothyroid Status: Chronic Assessment & Plan: TSH is 7.38. She has not been on any treatment. It appears she may need to start replacement therapy. Will begin L-thyroxine 25mcg PO daily. (5) RA (rheumatoid arthritis) Status: Chronic Assessment & Plan: Holding her usual Xeljanz. Exam Sepsis Risk: No Definite Risk JEAN PIERRE BROWN MD Sep 14, 2018 09:25
--- NOTE | 2018-09-14 10:05 | NUR ---
Physical Therapy Impression PT/OT co eval complete. Pt emotionally labile throughout session and demonstrating confusion as well. ModA x2 for bed mobility with frequent re-direction required. Pt stood at EOB x2 with modA x 2 with RW for safety, but did demonstrate L) LE buckling when standing. Pt has inconsistent strength deficits of the L) UE and LE. She may benefit from ARU or short term sub acute rehab. Physical Therapy Goals 1: Pt to complete bed mobility with SBA 2: Pt to complete transfers with SBA and appropriate AD 3: Pt to asc/desc 4 stairs with CGA 4: Pt to ambulate 100' with SBA and appropriate AD Patient's Goals
--- NOTE | 2018-09-14 10:41 | RADIOLOGY IMAGING REPORT ---
FACILITY: [facility] - [place] PATIENT NAME: Savannah Franco : 1955 MR: [id number] V: [id number] EXAM DATE: ORDERING PHYSICIAN: RISA CODY TECHNOLOGIST: Location: [facility] [place] Patient: Savannah Franco : 1955 Visit/Account:[id number] Date of Sevice: 09/14/2018 CAROTID HISTORY: Left sided weakness COMPARISON: None. FINDINGS: Grayscale, duplex and color Doppler interrogation of the extracranial carotid and vertebral arteries was performed bilateral. On the right, peak systolic velocities within the common and internal carotid arteries are 81 and 54 cm/sec respectively. There is a small amount of plaque at the right carotid bulb. Antegrade flow wi thin the common, internal and external carotid arteries as well as vertebral artery. ICA/CCA ratio 0. 7. On the left, peak systolic velocities within the common and internal carotid arteries are 1:30 and 88 cm/sec respectively. No significant plaque identified. Antegrade flow within the common, internal and external carotid arteries as well as vertebral artery. ICA/CCA ratio 0.7. IMPRESSION: There is a small amount of plaque at the right carotid bulb although no hemodynamically significant l esions are identified Velocity criteria are extrapolated from diameter data as defined by the Society of Radiologists in Ul trasound Consensus Conference Radiology 2003; 229;340-346 Report Dictated By: Vivienne Rivera MD at 09/14/2018 10:33 AM Report E-Signed By: Vivienne Rivera MD at 09/14/2018 10:37 AM WSN:[email or web address]
[2018-09-14 10:57] LABS: PLATELET COUNT, AUTOMATED 303 K/uL (150-450)
[2018-09-14] MEDS: APAP/HYDROCODONE 325/5 TAB PO PRN ×2 (13:32→17:49)
--- NOTE | 2018-09-14 13:35 | NUR ---
Occupational Therapy Impression Mod Ax2 bed mobility. Generalized weakness present but equal between UEs when supine. Varied strength and balance noted throughout tx. Mod A to sit EOB due to postural sway in all directions. Mod Ax2 sit<>stand with RWx2. Mod Ax2 side steps to HOB. Pt impulsive, unpredictable with functional tasks. Requires constant verbal and tactile cues to safety execute directions. Oriented to self, emotional lability noted. Rec further rehab prior to discharge to sister's home. Occupational Therapy Goals 1) pt will be Mod A UB/LB dressing. 2) pt will be Mod A grooming/hygiene. 3) pt will be Mod A toilet task. Patient's Goal
[2018-09-14] MEDS ORDERED: KCL (*) 20 MEQ/100 ML PREMIX 100 ML IV ONE (14:00)
[2018-09-14] MEDS ORDERED: HYDR-627 PO (14:17)
[2018-09-14 15:57] VITALS: BP 115/81
[2018-09-14] MEDS: POTASSIUM CHL 10 MEQ TABCR PO SCH (17:19)
[2018-09-14] MEDS ORDERED: POTA-28 PO (18:09)
[2018-09-14] MEDS ORDERED: SERT-181 PO (18:09)
[2018-09-14] MEDS ORDERED: ATOR40TA24 PO (18:09)
[2018-09-14] MEDS ORDERED: TOFA11TA PO (18:09)
[2018-09-14] MEDS ORDERED: LOSA100T75 PO (18:09)
[2018-09-14] MEDS ORDERED: TOFA5TAB PO (18:09)
[2018-09-14] MEDS ORDERED: HYDR200T42 PO (18:09)
[2018-09-14] MEDS ORDERED: INSU100V24 SQ (18:09)
[2018-09-14] MEDS ORDERED: AMLO-125 PO (18:09)
[2018-09-14 19:05] VITALS: BP 133/86
[2018-09-14] MEDS: ALPRAZolam 0.25 MG TAB PO PRN (21:05)
[2018-09-15 05:07] VITALS: BP 147/76
[2018-09-15] MEDS: APAP/HYDROCODONE 325/5 TAB PO PRN ×3 (05:16→20:35)
[2018-09-15] MEDS: LEVOTHYROXINE SOD 0.025 MG TAB PO SCH (05:16)
[2018-09-15] MEDS: HYDROCORTISONE 100 MG/2 ML IVP SCH ×2 (06:15→17:27)
[2018-09-15] MEDS: ALPRAZolam 0.25 MG TAB PO PRN ×2 (06:28→15:46)
[2018-09-15 06:35] LABS: PLATELET COUNT, AUTOMATED 283 K/uL (150-450)
[2018-09-15 07:28] VITALS: BP 138/93
[2018-09-15] MEDS: PHENYTOIN ER 100 MG CAPER PO SCH ×3 (08:26→20:35)
[2018-09-15] MEDS: ENOXAPARIN 40 MG/0.4ML SYR SC SCH (08:26)
[2018-09-15] MEDS: POTASSIUM CHL 10 MEQ TABCR PO SCH ×2 (08:26→17:29)
[2018-09-15] MEDS: INSULIN HUM LISPRO 100 UN/ML 3 ML VIAL SUBQ PRN ×3 (08:27→17:13)
[2018-09-15] MEDS ORDERED: KCL (*) 20 MEQ/100 ML PREMIX 100 ML IV ONE (08:40)
[2018-09-15] MEDS: TOFACITINIB CITRATE 11 MG PO SCH (11:39)
--- NOTE | 2018-09-15 12:33 | Hospitalist Progress Note ---
Subjective Progress Notes Subjective The patient states she is feeling better. Physical Exam Vital Signs Date Time Temp Pulse Resp B/P (MAP) Pulse Ox O2 Delivery O2 Flow Rate FiO2 09/15/18 07:48 95 09/15/18 07:45 Room Air 09/15/18 07:28 98.2 81 16 138/93 (108) 09/15/18 05:07 2.5 Intake and Output 09/15/18 07:00 Intake Total 2829.48 ml Output Total 300 ml Balance 2529.48 ml Intake Oral 320 ml IV Total 2509.48 ml Output Urine Total 300 ml # Voids 1 General Appearance: Alert, Awake, No Acute Distress, Afebrile Neuro: Other (Some difficulty with short term memory.) Eyes: PERRLA Cardiovascular: Regular Rate and Rhythm Respiratory: Clear to Auscultation GI: Soft and Non-Tender Extremities: Warm, Perfused Psych: Appropriate Mood & Affect Result Diagram: 09/15/1855409/15/18554 Assessment and Plan Problems: (1) Seizure Assessment & Plan: She did have 2 witnessed seizures. She was initially treated with lorazepam and Keppra, but has now been transitioned to Dilantin. She has not had any further seizures. EEG shows no focus for seizure but does show a generalized mild slow pattern consistent with metabolic, toxic or anoxic encephalopathy.. MRI unremarkable. Labs rather unremarkable. No real significant history of head injury or previous seizure (none as a child as well). (2) Left-sided weakness Status: Acute Assessment & Plan: Appears to have improved/resolved. MRI of the brain was negative. An echocardiogram showed EF of 55-60% with grade II diastolic dysfunction. There is noted to be moderate concentric LVH. The L atrium is mildly enlarged. There is mild mitral regurgitation. No shunt noted. and carotid ultrasound are pending. Possibly related to seizure. Will start to mobilize with PT/OT. (3) Type 2 diabetes mellitus Status: Chronic Assessment & Plan: Exacerbated by stress dose steroids. She is on sliding scale insulin. Continue ADA diet. Watch closely. It is unclear what medications she was actually taking as an outpatient. She states she was using a short acting insulin per sliding scale at home. She had been on a long acting insulin per her report, but stopped it due to ritter. She also mentions being on glucophage but Dr. Shane's record and pharmacy records show no evidence of this. Will add Lantus 10u bid today. She has been using over 30u of short acting insulin daily. (4) Hypothyroid Status: Chronic Assessment & Plan: TSH is 7.38. She has not been on any treatment. It appears she may need to start replacement therapy. Will begin L-thyroxine 25mcg PO daily. (5) RA (rheumatoid arthritis) Status: Chronic Assessment & Plan: The patient is on Xeljanz ER 11mg daily. Will restart her using the patient's own medication. Time Spent on Plan of Care: < 30 min Exam Sepsis Risk: No Definite Risk SILVANA BROWN MD Sep 15, 2018 12:33
[2018-09-15 13:32] VITALS: BP 116/71
--- NOTE | 2018-09-15 13:52 | NUR ---
Physical Therapy Impression PT/OT co-treat for pt safety and time split for billing purposes. Pt tolerated greater distance ambulation of 250' with one sitting rest break, however, she certainly would benefit from further use of FWW for safety and demos significant path deviation with just hand held assist. Pt demos fairly low tone throughout session but functional strength to tolerate up/down platform step. Pt is highly distractible and would benefit from CGA/Min assist on stairs to ensure safety and focus with this skill. Pt indicates that her sister will be able to assist with this. Further short-term subacute rehab is still recommended, however, with improvement noted today, pt would prefer to d/c home to her sister's care and this can also be supported as a safe option with [facility] to continue to improve and strengthen. Physical Therapy Goals 1: Pt to complete bed mobility with SBA 2: Pt to complete transfers with SBA and appropriate AD 3: Pt to asc/desc 4 stairs with CGA 4: Pt to ambulate 100' with SBA and appropriate AD Patient's Goals
--- NOTE | 2018-09-15 14:03 | NUR ---
Occupational Therapy Impression Pt more alert, improved follow through for v/c's this date. Continues to present with decreased balance seated/standing but able to self-correct. Independent bed mobility. CGA ambulation in hallway with no AD (handheld assist as pt typically utilizes quad cane). SpO2 >95% on room air. Pt encouraged to obtain a RW. Declined toileting. Pt desiring to discharge to sister's home with no concerns. Sister's home is accessible with appropriate AE (shower chair/toilet riser). Recommend use of RW and HomeHealth services. Occupational Therapy Goals 1) pt will be Mod A UB/LB dressing. 2) pt will be Mod A grooming/hygiene. 3) pt will be Mod A toilet task. Patient's Goal
[2018-09-15 19:37] VITALS: BP 129/94
[2018-09-15] MEDS: INSULIN GLARGINE 100 U/ML 3 ML PEN SUBQ SCH (20:40)
[2018-09-16] MEDS: ALPRAZolam 0.25 MG TAB PO PRN ×2 (00:35→09:17)
[2018-09-16 05:43] VITALS: BP 120/79
[2018-09-16] MEDS: APAP/HYDROCODONE 325/5 TAB PO PRN (05:48)
[2018-09-16] MEDS: LEVOTHYROXINE SOD 0.025 MG TAB PO SCH (05:48)
[2018-09-16] MEDS: HYDROCORTISONE 100 MG/2 ML IVP SCH (05:54)
[2018-09-16 06:20] LABS: PLATELET COUNT, AUTOMATED 294 K/uL (150-450)
[2018-09-16 07:14] VITALS: BP 154/104
[2018-09-16 07:34] VITALS: BP 152/82
[2018-09-16] MEDS: PHENYTOIN ER 100 MG CAPER PO SCH ×2 (08:21→13:52)
[2018-09-16] MEDS: ENOXAPARIN 40 MG/0.4ML SYR SC SCH (08:21)
[2018-09-16] MEDS: POTASSIUM CHL 10 MEQ TABCR PO SCH (08:21)
[2018-09-16] MEDS: INSULIN GLARGINE 100 U/ML 3 ML PEN SUBQ SCH (08:22)
[2018-09-16] MEDS: TOFACITINIB CITRATE 11 MG PO SCH (08:22)
[2018-09-16] MEDS: INSULIN HUM LISPRO 100 UN/ML 3 ML VIAL SUBQ PRN ×2 (08:22→12:00)
[2018-09-16] MEDS: KCL (*) 20 MEQ/100 ML PREMIX 100 ML IV SCH ×2 (08:25→09:05)
[2018-09-16] MEDS ORDERED: LOSARTAN POTASSIUM 50 MG TAB PO SCH (09:00)
--- NOTE | 2018-09-16 09:10 | NUR ---
Physical Therapy Impression Patient transferred from bed to standing I then performed toilet transfer I with min A to manage IV pole. Patient then ambulated with FWW ~150 feet with SBA and min A to manage IV pole. Patient then performed stair training in gym x 2 reps one with double FIRER TUNNEL KILN step to gait and one with single rail on left with side step to gait. Patient demonstrated safe technique and patients family was educated on stairs also. Patient is ready to be discharged to her sisters home with home health. Physical Therapy Goals 1: Pt to complete bed mobility with SBA 2: Pt to complete transfers with SBA and appropriate AD 3: Pt to asc/desc 4 stairs with CGA 4: Pt to ambulate 100' with SBA and appropriate AD Patient's Goals
[2018-09-16] MEDS ORDERED: PHEN100C88 PO (13:54)
[2018-09-16] MEDS ORDERED: LEVO25TA61 PO (13:54)
[2018-09-16] MEDS ORDERED: INSU100I30 SUBQ (13:54)
[2018-09-16] MEDS ORDERED: PRED-416 PO (14:06)
[2018-09-16] MEDS ORDERED: LEVO-3 PO (14:07)
--- NOTE | 2018-09-16 14:23 | Hospitalist Depart ---
Discharge Summary Reason for Hosp/Final Diag: (1) Seizure Status: Acute Hospital Course & Plan: She had witnessed seizures before and during this admission. She was initially treated with lorazepam and Keppra, but has now been transitioned to Dilantin because she had a seizure on the Keppra. She has not had any further seizures. EEG shows no focus for seizure but does show a generalized mild slow pattern consistent with metabolic, toxic or anoxic encephalopathy. MRI unremarkable. Labs rather unremarkable. No real significant history of head injury or previous seizure (none as a child as well). Certainly, a RA related cause is possible, but will defer to her tennis director if further work up is needed. (2) Hypokalemia Status: Acute Hospital Course & Plan: Etiology unclear. Not on any offending medications. Better after replacement. Mg wnl. She wants to leave the hospital rather than continue the work up, so will have her get a BMP/Mg in a couple of days. (3) Left-sided weakness Status: Acute Hospital Course & Plan: Resolved. MRI of the brain was negative. An echoca rdiogram showed EF of 55-60% with grade II diastolic dysfunction. There is noted to be moderate concentric LVH. The L atrium is mildly enlarged. There is mild mitral regurgitation. No shunt noted. and carotid ultrasound are pending. Possibly related to seizure/post-ictal state. She worked with therapy and they recommend home health. (4) Type 2 diabetes mellitus Status: Chronic Hospital Course & Plan: Exacerbated by stress dose steroids. She is on sliding scale insulin. Continue ADA diet. Watch closely. It is unclear what medications she was actually taking as an outpatient. She states she was using a short acting insulin per sliding scale at home. She had been on a long acting insulin per her report, but stopped it due to ritter. She also mentions being on glucophage but Dr. Zuñiga's record and pharmacy records show no evidence of this. Will add Lantus 10u bid today. She has been using over 30u of short acting insulin daily. (5) Hypothyroid Status: Chronic Hospital Course & Plan: TSH is 7.38. She reports being on therapy, but doesn't know the dose. Will defer any medication titration to her PCP (6) RA (rheumatoid arthritis) Status: Chronic Hospital Course & Plan: The patient is on Xeljanz ER 11mg daily, but because it interacts with phenytoin (becomes less effective), she is to hold it and discuss with her [employer]. Continue prednisone. Departure Weight (Pounds): 197 Result Diagram: 09/16/18 0603 09/16/18 1315 Item Value Date Time Phenytoin (Dilantin) Level 20.0 ug/ml 09/13/18 2230 White Blood Count 10.9 k/uL 09/12/18 1556 White Blood Count 11.8 k/uL H 09/14/18 1049 White Blood Count 8.8 k/uL 09/15/18 0555 White Blood Count 7.5 k/uL 09/16/18 0603 Hemoglobin 12.0 g/dL 09/16/18 0603 Hemoglobin 11.5 g/dL L 09/15/18 0555 Hemoglobin 12.5 g/dL 09/14/18 1049 Hemoglobin 13.7 g/dL 09/12/18 1556 Platelet Count 339 K/uL 09/12/18 1556 Platelet Count 303 K/uL 09/14/18 1049 Platelet Count 283 K/uL 09/15/18 0555 Platelet Count 294 K/uL 09/16/18 0603 Prothromb Time International Ratio 1.02 09/12/18 1556 Sodium Level 129 mmol/L L 09/12/18 1556 Potassium Level 3.1 mmol/L L 09/12/18 1556 Sodium Level 132 mmol/L L 09/13/18 0537 Potassium Level 3.4 mmol/L L 09/13/18 0537 Blood Urea Nitrogen 19 mg/dl H 09/12/18 1556 Creatinine 0.70 mg/dl 09/12/18 1556 Blood Urea Nitrogen 17 mg/dl 09/13/18 0537 Creatinine 0.50 mg/dl L 09/13/18 0537 Total Bilirubin 0.4 mg/dl 09/12/18 1556 Aspartate Amino Transf (AST/SGOT) 18 U/L 09/12/18 1556 Alanine Aminotransferase (ALT/SGPT) 18 U/L 09/12/18 1556 Alkaline Phosphatase 80 U/L 09/12/18 1556 Thyroid Stimulating Hormone (TSH) 7.38 uIU/ml H 09/13/18 0512 Plasma Cortisol 27.2 ug/dL 09/13/18 0810 Triglycerides Level 331 mg/dl H 09/13/18 0537 Cholesterol Level 212 mg/dl H 09/13/18 0537 Potassium Level 3.0 mmol/L L 09/14/18 1049 Magnesium Level 2.0 mg/dl 09/15/18 0555 Potassium Level 3.2 mmol/L L 09/15/18 0555 Potassium Level 2.7 mmol/L *L 09/16/18 0603 Urine Glucose (UA) 500 mg/dL 09/13/18 0000 Urine Ketones 20 mg/dL H 09/13/18 0000 Urine Leukocyte Esterase Small H 09/13/18 0000 Urine RBC 76 /HPF 09/13/18 0000 Urine WBC 40 /HPF 09/13/18 0000 Urine Squamous Epithelial Cells Many /LPF H 09/13/18 0000 Urine Bacteria Negative /HPF 09/13/18 0000 Imaging 09/14/18 Carotid Artery Doppler - There is a small amount of plaque at the right carotid bulb although no hemodynamically significant lesions are identified 09/14/18 Echo - See official report for details. EF of 55-60% with grade II diastolic dysfunction. There is noted to be moderate concentric LVH. The L atrium is mildly enlarged. There is mild mitral regurgitation. No shunt noted. 09/12/18 Brain MRI - 1. Mild age related changes as described above. 2. No evidence of acute intracranial pathology. 3. Underlying paranasal sinus disease. 09/12/18 CXR - 1. No acute cardiopulmonary process. 09/12/[address] - 1. No acute hemorrhage or intracranial mass lesion. No CT evidence of acute infarct. 2. A few small areas of hypodensity in the left frontal lobe could be related to old infarcts or trauma. EKG Vent. Rate : 100 BPM Atrial Rate : 100 BPM P-R Int : 158 ms QRS Dur : 092 ms QT Int : 378 ms P-R-T Axes : 054 008 078 degrees QTc Int : 487 ms Sinus rhythm Non specific st changes Prolonged QT Abnormal ECG No previous ECGs available Confirmed by Bhaskar Segura ([id number]) on 09/12/2018 10:10:26 PM Condition: Improved Discharge: Home Health PT/OT Follow Up For: PT For Strengthening Discharge Instructions Home Meds Active Scripts Phenytoin Sodium Extended (PHENYTOIN SODIUM EXTENDED) 100 Mg Capsule, 100 MG PO TID, #90 CAPSULE Prov:MARIA G HERNANDEZ MD 09/16/18 Insulin Glargine 100 Un/Ml Pen (LANTUS SOLOSTAR PEN) 100 Unit/1 Ml Insuln.pen, 10 UNIT SUBQ BID, #1 Prov:MARIA G HERNANDEZ MD 09/16/18 Reported Medications Levothyroxine Sodium (LEVOTHYROXINE SODIUM) 100 Mcg Tablet, 100 MCG PO QDAY, TAB 09/16/18 Prednisone (PREDNISONE) 5 Mg Tab.ds.pk, 5 MG PO DAILY 09/16/18 Atorvastatin Calcium (LIPITOR) 40 Mg Tablet, 1 TAB PO QDAY, TAB Not filled recently. Unclear if the patient is taking this. 09/14/18 Insulin Lispro 100 Un/Ml Vial (HUMALOG 100 U/ML VIAL) 100 Unit/1 Ml Vial, 5 UNIT SQ DIRECTED, VIAL 09/14/18 Sertraline Hcl (SERTRALINE HCL) 100 Mg Tablet, 0.5 TAB PO QDAY, TAB 09/14/18 Losartan Potassium (LOSARTAN POTASSIUM) 100 Mg Tablet, 50 MG PO QDAY 09/14/18 Discontinued Reported Medications Tofacitinib Citrate (Xeljanz Xr) 11 Mg Tab.er.24h, 1 TAB PO QDAY 09/14/18 Tofacitinib Citrate (XELJANZ) 5 Mg Tablet, 5 MG PO BID 09/14/18 Potassium Chloride (POTASSIUM CHLORIDE) 10 Meq Tablet.er, 10 MEQ PO QDAY 09/14/18 Amlodipine Besylate (AMLODIPINE BESYLATE) 5 Mg Tablet, 1 TAB PO QDAY, TAB 09/14/18 Hydrocodone Bit/Acetaminophen (HYDROCODON-ACETAMINOPHEN 5-325) 1 Each Tablet, 1 EACH PO Q6H, TAB 09/12/18 Losartan Potassium (LOSARTAN POTASSIUM) 50 Mg Tablet, 50 MG PO QDAY 09/12/18 Insulin Regular, Human (HUMULIN R) 100 Unit/1 Ml Vial, 5 UNIT IJ, VIAL 12/08/14 Tofacitinib Citrate (XELJANZ) 5 Mg Tablet, 5 MG PO BID 12/08/14 Glipizide (GLIPIZIDE ER) 5 Mg Tab.er.24, PO BID 12/08/14 Tizanidine Hcl (Zanaflex) 4 Mg Tab, 8 MG PO PRN 01/04/12 Furosemide (LASIX (OR EQUIV)) 20 Mg Tab, 20 MG PO DAILY 01/04/12 Alprazolam (Xanax) 0.5 Mg Tab, 0.5 MG PO TID 01/04/12 Prednisone (PREDNISONE) 1 Mg Tablet, 5 MG PO DAILY 01/04/12 Acetaminophen/Hydrocodone ([place] 10/325) 1 Ea Tab, 1 EA PO PRN 01/04/12 Levothyroxine Sodium (SYNTHROID/LEVOTHROID (OR EQUIV)) 0.05 Mg Tab, 150 MCG PO DAILY 01/04/12 Discontinued Scripts Hydromorphone Hcl (DILAUDID) 2 Mg Tablet, 2 MG PO Q4H PRN for PAIN, #10 Prov:CAMILO SHETTY DO 03/07/15 Omeprazole (PRILOSEC) 20 Mg Capsule.dr, 1 TAB PO BID, #60 TAB Prov:CRISTINA JONES DO 02/21/15 Amoxicillin (AMOXICILLIN) 500 Mg Capsule, 2 CAP PO Q12H, #56 CAPSULE Prov:CRISTINA JONES DO 02/21/15 Clarithromycin (CLARITHROMYCIN) 250 Mg/5 Ml Susp.recon, 500 MG PO BID, #28 BOT Prov:CRISTINA JONES DO 02/21/15 Lansoprazole (PREVACID 24HR) 15 Mg Capsule.dr, 15 MG PO QDAY, #0 Prov:MARIA G HERNANDEZ MD 06/22/14 [Aspirin] 81 MG CHEW No Conflict Check, 81 MG PO QDAY, #0 Prov:MARIA G HERNANDEZ MD 06/22/14 Diet: Diabetic Activity: As Tolerated Special Instructions: No driving until cleared by a Neurologist or your PCP No Xeljanz until cleared by [employer] Teacher Follow up with your PCP in 1-2 weeks and make an appointment to see a Neurologist. BMP/Mg/Phenytoin test in 2-4 days. Go to the ER for a seizure. Copies to: JACOBO ZUÑIGA DO; JACKIE HAYNES MD ; Venous Thromboembolism Antithrombotics Is Pt On Any Antithrombotics?: Yes [id number] Certification Face to Face Home Health Certification Patient's Primary Care Provider: Jacobo Zuñiga DO Institutional Provider conducted the [id number] encounter. Electronic Undersigning Physician Certifies Home Health. I certify that the patient has been under my care and that I had a [id number] encounter that meets the physician [id number] encounter requirements with this patient. This patient is home-bound due to safety issues and continues to require assistance with ADL's. I certify that based on my findings, that Nursing, Aides and the following Home Health services are medically necessary: Medical Necessity: Nursing, Rehab Date Face to Face Conducted: Sep 16, 2018 MARIA G HERNANDEZ MD Sep 16, 2018 14:23
== END 2018-09-16 15:05 | disposition home health service (06) | DRG 69 ==
LOC: ER 16:05 → MED 19:42
PROVIDERS: ADMIT Internal Medicine; ATTEND Internal Medicine
DX: I67.82 Cerebral ischemia (principal); I10 Essential (primary) hypertension; E11.65 Type 2 diabetes mellitus with hyperglycemia; T38.3X6A Underdosing of insulin and oral hypoglycemic [antidiabetic] drugs, initial encounter; E87.6 Hypokalemia; R53.1 Weakness; R56.9 Unspecified convulsions; E78.5 Hyperlipidemia, unspecified; K76.0 Fatty (change of) liver, not elsewhere classified; F32.9 Major depressive disorder, single episode, unspecified; R09.02 Hypoxemia; T38.0X5A Adverse effect of glucocorticoids and synthetic analogues, initial encounter; E03.9 Hypothyroidism, unspecified; M06.9 Rheumatoid arthritis, unspecified; Z91.120 Patient's intentional underdosing of medication regimen due to financial hardship; Z88.5 Allergy status to narcotic agent; Z90.710 Acquired absence of both cervix and uterus
CPT/HCPCS: 36415; 36416; 70450; 70551; 71045; 80185; 81001; 82040; 82247; 82310; 82374; 82435; 82465; 82533; 82565; 82947; 82948; 83036; 83718; 83735; 84075; 84132; 84155; 84295; 84443; 84450; 84460; 84478; 84484; 84520; 85025; 85610; 85730; 87077; 87088; 87186; 93005; 93306; 93880; 95819; 96374; 97161; 97166; 99285; J1650; J1720; J1815; J1885; J1953; J2060; J3480; J7030; J7042; J7050; Q2009